=== PATIENT | male | born 1985 | race Caucasian/White ===

== ENCOUNTER 2022-05-23 02:00 | Emergency (ER) | payer SELFPAY ==
[~2022-05-23] VITALS: Ht 177.8 cm; Wt 97.5 kg
--- NOTE | 2022-05-23 02:10 | NUR ---
BIBS C/O ASTHMA ATTACK X30MIN TOOK ALBUTEROL AT HOME W/ LITTLE RELIEF. PATIENT IS AAOX4. ABLE TO MAKE NEEDS KNOWN. -CP, CLEAR BREATH SOUNDS AUSCULTATED BILATERALLY. ATTACHED TO MONITOR. VITALS CHECKED.
[2022-05-23 03:03] LABS: BASOPHILS % (AUTO) 0.2 % (0.0-2.0); EOSINOPHILS % (AUTO) 2.5 % (0.0-6.0); HEMATOCRIT 41 % (39-51); HEMOGLOBIN 14.2 g/dL (13.5-17.5); LYMPHOCYTES # (AUTO) 3.1 K/uL (0.8-4.8); LYMPHOCYTES % (AUTO) 43.6 % (20.0-44.0); MEAN CORPUSCULAR HGB CONC 35 g/dl (31.0-36.0); MEAN CORPUSCULAR VOLUME 90 fL (80-96); MONOCYTES # (AUTO) 0.4 K/uL (0.1-1.30); MONOCYTES % (AUTO) 5.1 % (2.0-12.0); NEUTROPHILS # (AUTO) 3.5 K/uL (1.8-8.9); NEUTROPHILS % (AUTO) 48.6 % (43.0-81.0); PLATELET COUNT (AUTO) 150 K/uL (150-450); RED BLOOD CELL COUNT(AUTO) 4.52 MIL/uL (4.5-6.0); WHITE BLOOD COUNT (AUTO) 7.1 K/uL (4.3-11.0)
[2022-05-23 03:18] LABS: CALCIUM, SERUM 8.2 mg/dL (8.5-10.1); CARBON DIOXIDE 29 mmol/L (21-32); CHLORIDE 110 mmol/L (98-107); CREATININE 0.9 mg/dL (0.6-1.3); GLUCOSE 109 mg/dL (74-106); POTASSIUM 3.6 mmol/L (3.5-5.1); SODIUM SERUM 139 mmol/L (136-145); UREA NITROGEN, BLOOD 18 mg/dL (7-18)
[2022-05-23 05:19] VITALS: BP 148/85
--- NOTE | 2022-05-23 05:19 | NUR ---
Patient discharged to home in stable condition. Written and verbal after care instructions given. Patient verbalizes understanding of instruction.
== END 2022-05-23 05:22 | disposition home or self-care (01) ==
LOC: ER 02:02
DX: R06.00 Dyspnea, unspecified (principal); J45.909 Unspecified asthma, uncomplicated
CPT/HCPCS: 36415; 71045-TC; 80048-TC; 84484-TC; 85025-TC